=== PATIENT | male | born 1960 | race Caucasian/White ===

== ENCOUNTER 2022-07-19 22:00 | Emergency (ER) | payer MEDICAID ==
[~2022-07-19] VITALS: Ht 157.5 cm; Wt 59.0 kg
[2022-07-19 22:11] VITALS: BP_SYST 101
--- NOTE | 2022-07-19 22:15 | NUR ---
PT BIB BLS and PD with c/o ETOH. PT WAS BY A POOL WITH OTHER VISITORS AND THEY CALLED PD BECAUSE THEY COMPLAINED ABOUT PT BEING INTOXICATED. PT DENIES CP, N/V, AND PAIN. PT A&O X 1, TO NAME. PT AMBULATORY WITH ASSISTANCE TO BED 1.
--- NOTE | 2022-07-19 22:22 | NUR ---
Patient to ER bed 01 to gown for evaluation. Side rails up. Report given to Juanita HATFIELD.
--- NOTE | 2022-07-19 22:30 | NUR ---
Note sheri in EDM - 07/19/22 at 2333 by [email or web address] Received pt AAOx3, unable to state date and year. Pt has swim trunks on, no shirt or shoes. Voices no c/o H/A, N/V. No s/s of distress.
--- NOTE | 2022-07-19 22:30 | NUR ---
Received pt AAOx3, unable to state date and year. Pt has swim trunks on, no shirt or shoes. Voices no c/o H/A, N/V. No s/s of distress. Addendum: 07/19/22 at 2334 by [email or web address] Jacob Chappell RN
--- NOTE | 2022-07-19 22:45 | NUR ---
Note dmitriyone in EDM - 07/19/22 at 2332 by [email or web address] Pt attempting to leave the ED stating "I am going home." Redirected tobed in room 1. Pt ambulating w/ steady / erect gait, no s/s of distresss noted, pt is calm and quiet, however, actively anxious to leave.
--- NOTE | 2022-07-19 22:55 | NUR ---
Pt d/c home, pending transpot(Taxi) arival to go home. Laying on [address] awaiting ride home.
[2022-07-19 23:17] VITALS: BP_SYST 111
--- NOTE | 2022-07-20 08:07 | NUR ---
breakfast tray provided at bedside
--- NOTE | 2022-07-20 08:30 | NUR ---
Patient given written and verbal discharge instructions and verbalizes understanding. ER MD discussed with patient the results and treatment provided. Patient in stable condition. ID arm band removed. Patient educated on ETOH management and to follow up with PMD. Pain Scale . Opportunity for questions provided and answered.
== END 2022-07-20 08:30 | disposition home or self-care (01) ==
LOC: SED 22:00
DX: R41.82 Altered mental status, unspecified (principal); F10.129 Alcohol abuse with intoxication, unspecified; F17.200 Nicotine dependence, unspecified, uncomplicated; Z79.899 Other long term (current) drug therapy; Y90.6 Blood alcohol level of 120-199 mg/100 ml
CPT/HCPCS: 99283